=== PATIENT | female | born 1950 | race Caucasian/White ===

== ENCOUNTER 2023-07-25 14:21 | Emergency (ER) | payer BC ==
[2023-07-25 14:57] LABS: #Eosinphils 0.1 thou/uL (0.0-0.7); #Lymphocytes 1.7 thou/uL (1.20-3.40); #Monocytes 0.3 thou/uL (0.11-0.59); %Basophils 0.6 % (0.0-1.0); %Eosinophils 1.6 % (0.0-10.0); %Monocytes 4.8 % (0.0-10.0); %Neutrophils 65.1 % (42.0-75.0); Hematocrit 46.1 % (36.0-47.0); Hemoglobin 14.5 g/dL (12.0-16.0); Mean Corpuscular HGB CONC 31.4 g/dL (32.0-36.0); Mean Corpuscular Hemoglobin 27.3 pg (27.0-31.0); Mean Corpuscular Volume 86.9 fl (78.0-98.0); Mean Platelet Volume 8.7 fL (7.4-10.4); Platelet Count 149 10x3/uL (130-400); RBC Distribution Width 12.1 % (11.5-14.5); Red Blood Cell (RBC) Count 5.31 mill/uL (4.20-5.40); White Blood Cell (WBC) Count 6.1 10x3/uL (4.8-10.8)
[2023-07-25] MEDS ORDERED: Ondansetron PF 4 MG/2 ML Vial ONE (14:58)
[2023-07-25] MEDS ORDERED: Sodium Chloride 0.9% 1,000 ML ONE (14:58)
[2023-07-25 15:14] LABS: ALT (SGPT) 32 U/L (8-55); AST (SGOT) 35 U/L (5-34); Alkaline Phosphatase 90 U/L (40-110); Anion Gap 18 mmol/L (10-20); BUN (Urea Nitrogen) 18 mg/dL (9.8-20.1); Bilirubin, Total 0.7 mg/dL (0.2-1.2); Calc. Creatinine Clearance 0 mL/min (70-130); Carbon Dioxide 20 mmol/L (23-31); Chloride 103 mmol/L (98-107); Estimated GFR 58; Globulin 3.7 g/dL (2.4-3.5); Glucose 210 mg/dL (83-110); Potassium 3.8 mmol/L (3.5-5.1); Protein, Total 7.7 g/dL (5.8-8.1); Sodium 137 mmol/L (136-145)
[2023-07-25] MEDS ORDERED: Aspirin Chewable 81 MG TAB ONE (15:22)
[2023-07-25 16:43] LABS: Troponin I Less than 0.010 ng/mL (< 0.028)
[2023-07-25 17:10] LABS: Bilirubin Negative (Negative); Blood, Urine Negative (Negative); Clarity Clear (Clear); Glucose, Urine (Dipstick) >=1000 mg/dL (Negative); Ketone, Urine Trace mg/dL (Negative); Leukocyte Negative (Negative); Nitrite Negative (Negative); Protein, Urine (Dipstick) Negative (Neg-Trace); Urobilinogen 0.2 mg/dL (Less than 2)
[2023-07-25 17:11] LABS: Squamous Epithelial 0-3 HPF (0-3)
[2023-07-25 18:37] LABS: Troponin I 0.014 ng/mL (< 0.028)
== END 2023-07-25 18:57 | disposition home or self-care (01) ==
LOC: NAV ERS 14:21
DX: E86.0 Dehydration (principal); R07.89 Other chest pain; E11.9 Type 2 diabetes mellitus without complications; I10 Essential (primary) hypertension; Z79.4 Long term (current) use of insulin; Z79.899 Other long term (current) drug therapy
CPT/HCPCS: 36416; 71045; 80053; 81001; 84484; 85025; 93005; 96361; 96374; J2405; J7050